=== PATIENT | female | born 1990 | race Two or more races ===

== ENCOUNTER 2022-03-27 19:30 | Inpatient (IN) | payer OTHER ==
[2022-03-27 21:13] VITALS: BMI 37.3
[2022-03-27] MEDS: MISOPROSTOL 100 MCG TABLET PV SCH (21:25)
[2022-03-27] MEDS: DEXTROSE 5%-LACTATED RINGERS 1,000 ML IV SCH (21:30)
[2022-03-27 21:41] LABS: INR 1.02 (0.83-1.09); PROTHROMBIN TIME (PATIENT) 11.7 SEC (9.7-13.0)
[2022-03-27 21:48] LABS: BASO % 0.3 % (0-2.0); EOS % 0.8 % (0-4.5); HEMATOCRIT 33.7 % (32.4-45.2); HEMOGLOBIN 11.3 GM/dL (10.7-15.3); LYMPH % 24.6 % (8-40); MCH 25.2 pg (25.7-33.7); MCHC 33.4 g/dl (32.0-36.0); MEAN CELL VOLUME 75.6 fl (80-96); MEAN PLT VOLUME 9.9 fl (7.5-11.1); MONO % 7.1 % (3.8-10.2); NEUT % 67.2 % (42.8-82.8); PLATELET COUNT 179 10^3/uL (134-434); RBC 4.46 M/mm3 (3.60-5.2); RDW 16.4 % (11.6-15.6); WHITE BLOOD COUNT 8.5 K/mm3 (4.0-10.0)
[2022-03-27 21:54] LABS: CALCIUM 8.6 mg/dL (8.5-10.1)
[2022-03-27 21:55] LABS: BLOOD UREA NITROGEN 7.4 mg/dL (7-18)
[2022-03-27 21:58] LABS: CREATININE 0.5 mg/dL (0.55-1.3)
[2022-03-28] MEDS: MISOPROSTOL 100 MCG TABLET PV SCH ×5 (01:25→19:33)
[2022-03-28] MEDS: DEXTROSE 5%-LACTATED RINGERS 1,000 ML IV SCH ×2 (04:15→08:45)
[2022-03-28] MEDS ORDERED: FENTANYL/BUPIVACAINE/NS/PF - PCEA - 50 ML DISP.SYRIN EP ONE (07:40)
[2022-03-28] MEDS ORDERED: BUPIVACAINE HCL/PF 0.25% (2.5MG/ML) 10 ML VIAL ONE (07:50)
[2022-03-28] MEDS ORDERED: SODIUM CHLORIDE 1,000 ML IV STA (08:06)
[2022-03-28] MEDS ORDERED: OXYTOCIN 20 UNITS in 0.9% NS 20 UNIT/1,000 ML INFUS.BAG IV ONE ×2 (09:37→14:11)
[2022-03-28] MEDS: OXYTOCIN 20 UNITS in 0.9% NS 20 UNIT/1,000 ML INFUS.BAG IV SCH ×2 (11:11→14:15)
[2022-03-28] MEDS ORDERED: ACETAMINOPHEN 325 MG TABLET (FP) PO PRN (11:41)
[2022-03-28] MEDS ORDERED: BISACODYL 10 MG SUPP.RECT RC PRN (11:41)
[2022-03-28] MEDS ORDERED: BENZOCAINE 20% 57 GM BOTTLE TP PRN (11:41)
[2022-03-28] MEDS ORDERED: BENZOCAINE 28 GM HEMORRHOIDAL OINTMENT TP PRN (11:41)
[2022-03-28] MEDS ORDERED: WITCH HAZEL 50% (TUCKS) 40 PAD/JAR PAD TP PRN (11:41)
[2022-03-28] MEDS: IBUPROFEN 600 MG TABLET (FP) PO PRN ×2 (12:05→17:52)
[2022-03-28 12:13] LABS: CORD BASE EXCESS -8.3 mmol/L (0-2); CORD HCO3 21.7 mmHg (20-29); CORD PCO2 63.7 mmHg (30-78); CORD pH 7.151 (7.14-7.44)
[2022-03-28 12:15] LABS: CORD BASE EXCESS -8.3 mmol/L (0-2); CORD HCO3 17.2 mmHg (20-29); CORD PCO2 35.7 mmHg (30-78); CORD pH 7.3 (7.14-7.44)
[2022-03-28 19:15] LABS: OPIATES, URI NEGATIVE (NEGATIVE); PHENCYCLIDINE,URINE NEGATIVE (NEGATIVE); URINE BARBITURATES NEGATIVE (NEGATIVE)
[2022-03-28 19:20] LABS: COCAINE, UR NEGATIVE (NEGATIVE); METHADONE, UR NEGATIVE (NEGATIVE); URINE AMPHETAMINES NEGATIVE (NEGATIVE); URINE BENZODIAZEPINES NEGATIVE (NEGATIVE)
[2022-03-28] MEDS: FERROUS SO4 325 MG TABLET (FP) PO SCH (21:28)
[2022-03-29 08:20] LABS: BASO % 0.3 % (0-2.0); EOS % 0.7 % (0-4.5); HEMATOCRIT 22.4 % (32.4-45.2); HEMOGLOBIN 7.4 GM/dL (10.7-15.3); LYMPH % 21.5 % (8-40); MCH 25.2 pg (25.7-33.7); MEAN CELL VOLUME 76.4 fl (80-96); MEAN PLT VOLUME 9.8 fl (7.5-11.1); NEUT % 71.5 % (42.8-82.8); PLATELET COUNT 141 10^3/uL (134-434); RBC 2.94 M/mm3 (3.60-5.2); RDW 16.6 % (11.6-15.6)
[2022-03-29] MEDS: IBUPROFEN 600 MG TABLET (FP) PO PRN ×2 (08:27→21:45)
[2022-03-29] MEDS: PRENATAL VITAMINS W/ FOLIC ACID TABLET (FP) PO SCH (11:51)
[2022-03-29] MEDS: FERROUS SO4 325 MG TABLET (FP) PO SCH ×2 (11:52→22:07)
[2022-03-29] MEDS ORDERED: SENNOSIDES/DOCUSATE COMBO (SENNA PLUS) TABLET (UD) PO PRN (22:00)
[2022-03-30] MEDS: PRENATAL VITAMINS W/ FOLIC ACID TABLET (FP) PO SCH (11:04)
[2022-03-30] MEDS: FERROUS SO4 325 MG TABLET (FP) PO SCH (11:04)
[2022-03-30] MEDS: IBUPROFEN 600 MG TABLET (FP) PO PRN (11:04)
[2022-03-30 11:49] VITALS: BP 132/69; PULSE 98; TEMP 99
== END 2022-03-30 12:20 | disposition home or self-care (01) | DRG 560 ==
LOC: JLDR 19:30 → J3W 03-28 14:20
PROVIDERS: ADMIT Obstetrics & Gynecology Maternal & Fetal Medicine; ATTEND Obstetrics & Gynecology Maternal & Fetal Medicine
PROC: 10E0XZZ Delivery of Products of Conception, External Approach (ICD-10-PCS; principal; 2022-03-28)
PROC: 3E0P7VZ Introduction of Hormone into Female Reproductive, Via Natural or Artificial Opening (ICD-10-PCS; 2022-03-28)
PROC: 0W8NXZZ Division of Female Perineum, External Approach (ICD-10-PCS; 2022-03-28)
PROC: 0KQM0ZZ Repair Perineum Muscle, Open Approach (ICD-10-PCS; 2022-03-28)
PROC: 10907ZC Drainage of Amniotic Fluid, Therapeutic from Products of Conception, Via Natural or Artificial Opening (ICD-10-PCS; 2022-03-28)
DX: O41.03X0 Oligohydramnios, third trimester, not applicable or unspecified (principal); O24.425 Gestational diabetes mellitus in childbirth, controlled by oral hypoglycemic drugs; O98.52 Other viral diseases complicating childbirth; U07.1 COVID-19; O99.214 Obesity complicating childbirth; Z3A.38 38 weeks gestation of pregnancy; Z37.0 Single live birth
CPT/HCPCS: 36415; 36600; 59409; 80048; 80307; 82803; 82962; 85025; 85610; 85730; 86780; 86850; 86900; 86901; 88307-TC; C9803-CS; U0003; U0005